=== PATIENT | male | born 1965 | race Caucasian/White ===

== ENCOUNTER 2017-08-20 16:01 | Emergency (ER) | payer BC, OTHER ==
[~2017-08-20] VITALS: Ht 182.9 cm; Wt 104.5 kg
[2017-08-20] MEDS ORDERED: ketorolac trometh inj. 60 MG/2 ML VIAL IM ONE (17:20)
[2017-08-20] MEDS ORDERED: LORazepam 2 mg/ml vial IM ONE (17:20)
[2017-08-20] MEDS ORDERED: HYDR-565 PO (17:29)
[2017-08-20] MEDS ORDERED: IBUP-1984 PO (17:29)
[2017-08-20] MEDS ORDERED: CYCL-1 PO (17:29)
[2017-08-20 17:59] VITALS: BP 194/123
== END 2017-08-20 18:00 | disposition home or self-care (01) ==
LOC: ER 16:02
DX: M54.5 Low back pain (principal); G89.29 Other chronic pain
CPT/HCPCS: 96372; 99284; J1885; J2060; J2270

== ENCOUNTER 2022-07-06 10:12 | Emergency (ER) | payer BC ==
[~2022-07-06] VITALS: Ht 182.9 cm; Wt 107.0 kg
[~2022-07-06 10:12] MED LIST: CYCL-1 PO
[2022-07-06 10:58] VITALS: BP 197/113
[2022-07-06] MEDS ORDERED: ketorolac trometh. 30mg/ml inj. IM ONE (13:40)
[2022-07-06] MEDS ORDERED: LORazepam 2 mg/ml vial IM ONE (13:40)
[2022-07-06] MEDS ORDERED: morphine 4 MG/ML inj SYRINge IM ONE (13:40)
== END 2022-07-06 14:11 | disposition home or self-care (01) ==
LOC: ER 10:12
DX: M54.50 Low back pain, unspecified (principal); G89.29 Other chronic pain
CPT/HCPCS: 96372; 99284; J1885; J2060; J2270

== ENCOUNTER 2024-11-27 08:31 | Emergency (ER) | payer BC ==
[~2024-11-27] VITALS: Ht 182.9 cm; Wt 109.1 kg
[2024-11-27] MEDS ORDERED: METH4TAB81 PO (09:05)
[2024-11-27] MEDS ORDERED: METH-797 PO (09:06)
[2024-11-27] MEDS: dexamethasone 4mg/ml inj IM ONE (09:23)
[2024-11-27 09:29] VITALS: TEMP 98
[2024-11-27] MEDS: lisinopril 10 MG tablet PO ONE (09:55)
[2024-11-27] MEDS: HYDROchlorothiazide 25mg tablet PO ONE (09:55)
[2024-11-27] MEDS: labetalol 20mg/4ml (5mg/ml) syringe IV ONE ×2 (10:04→11:14)
[2024-11-27 10:40] VITALS: BP 219/115; PULSE 74; RESP 14; O2SAT 98
[2024-11-27 10:56] LABS: BASOPHILS % (AUTO) 0.4 % (0-1); EOSINOPHILS # (AUTO) 0.1 X10'3 (0-0.9); EOSINOPHILS % (AUTO) 1.1 % (0-6); HEMATOCRIT 50.3 % (42.0-52.0); HEMOGLOBIN 17.1 g/dl (14.0-17.9); LYMPHOCYTES # (AUTO) 1.7 X10'3 (1.1-4.8); LYMPHOCYTES % (AUTO) 21.2 % (21-51); MEAN CORPUSCULAR HEMOGLOBIN 29.5 PG (27.0-31.0); MEAN CORPUSCULAR HGB CONC 34.1 g/dL (33.0-36.5); MEAN CORPUSCULAR VOLUME 86.5 FL (78-98); MEAN PLATELET VOLUME 8.8 FL (7.4-10.4); MONOCYTES # (AUTO) 0.5 X10'3 (0-0.9); MONOCYTES % (AUTO) 5.8 % (2-12); NEUTROPHILS # (AUTO) 5.7 X10'3 (1.8-7.7); NEUTROPHILS % (AUTO) 71.5 % (42-75); PLATELET COUNT 343 X10'3 (140-440); RED BLOOD COUNT 5.81 X10'6 (4.70-6.10); RED CELL DISTRIBUTION WIDTH 14.4 % (11.5-14.5); WHITE BLOOD COUNT 7.9 X10'3 (4.5-11.0)
[2024-11-27 11:14] LABS: ALANINE AMINOTRANSFERASE 46 U/L (12-78); ALBUMIN 4.7 G/DL (3.4-5.0); ALBUMIN/GLOBULIN RATIO 1.6 (1.1-1.5); ALKALINE PHOSPHATASE 84 IU/L (46-116); ANION GAP 10 (8-16); ASPARTATE AMINO TRANSFERASE 30 U/L (10-37); BILIRUBIN,TOTAL 0.9 MG/DL (0.1-1.0); BLOOD UREA NITROGEN 18 MG/DL (7-18); BUN/CREATININE RATIO 20.7 (10.0-20.0); CHLORIDE 103 MMOL/L (99-107); CREATININE 0.87 MG/DL (0.60-1.10); GLUCOSE 117 MG/DL (70-104); POTASSIUM 3.8 MMOL/L (3.5-5.1); SODIUM 139 MMOL/L (135-145); TOTAL CARBON DIOXIDE 25.9 MMOL/L (24-32); TOTAL PROTEIN 7.6 G/DL (6.4-8.2); eCRCL 100 ML/MIN; eGFR 90 ML/MIN
[2024-11-27 11:22] LABS: PRO BRAIN NATRIURETIC PEPTIDE 197 PG/ML (0-125)
[2024-11-27] MEDS ORDERED: LISI1TAB49 PO (12:02)
== END 2024-11-27 12:28 | disposition home or self-care (01) ==
LOC: ER 08:32
DX: M54.59 Other low back pain (principal); G89.29 Other chronic pain; I16.1 Hypertensive emergency; I49.9 Cardiac arrhythmia, unspecified
CPT/HCPCS: 36415; 71045; 80053; 83880; 84484; 85025; 93005; 96372; 96374; 96376; 99285; J1100; J3490; 96375